=== PATIENT | female | born 1985 | race Caucasian/White ===

== ENCOUNTER 2020-10-17 11:57 | Emergency (ER) | payer BC, SELFPAY ==
--- NOTE | ~2020-10-17 | XR_ITS ---
EXAMINATION: XR chest 2V DATE: 10/17/2020 12:41 INDICATION: Cough. TECHNIQUE: Frontal and lateral views of the chest were obtained. COMPARISON: CT abdomen and pelvis 11/07/2014 FINDINGS: The chest demonstrates clear lungs without pneumonia, pleural effusion, or pneumothorax. Th e heart size is normal. IMPRESSION: 1. No acute cardiopulmonary disease. Reviewed, dictated and finalized at location A.
[2020-10-17 12:17] VITALS: BP 129/84; PULSE 116; RESP 20; TEMP 36.5; O2SAT 100
--- NOTE | 2020-10-17 16:03 | ED.GENADULT ---
HPI - General Adult General Chief complaint: Unspecified <Donna Velazquez MD - Last Filed: 10/19/20 06:54> Stated complaint: sob, recent covid <Donna Velazquez MD - Last Filed: 10/19/20 06:54> Time Seen by Provider: 10/17/20 15:49 <Donna Velazquez MD - Last Filed: 10/19/20 06:54> Source: patient <Donna Velazquez MD - Last Filed: 10/19/20 06:54> Mode of arrival: ambulatory <Donna Velazquez MD - Last Filed: 10/19/20 06:54> Limitations: no limitations <Donna Velazquez MD - Last Filed: 10/19/20 06:54> History of Present Illness HPI narrative: This is a 35 year old female who presents for evaluation of lower back pain. Patient states she was found to be COVID + 12 days ago. Her symptoms were fever, cough, headache and congestion. She states 2 days ago she was feeling like herself but then she developed lower back discomfort. She reports heavy feeling to her back/bilateral flank. She was unable to sleep last night because she could not get comfortable. She also reports she feels like she is breathing differently and she may not be getting a full breath. She states she has been told it may be a panic attack. She denies abdominal pain, fever, nausea or vomiting. She also denies urinary complaints. <Donna Velazquez MD - Last Filed: 10/19/20 06:54> Related Data Home medications: Home Medications Medication Instructions Recorded Confirmed No Home Medications 10/17/20 10/17/20 <Donna Velazquez MD - Last Filed: 10/19/20 06:54> Allergies/adverse reactions: Allergies Allergy/AdvReac Type Severity Reaction Status Date / Time codeine Allergy Unknown Other Verified 10/17/20 17:34 wheat Allergy Unknown IBS Verified 10/17/20 17:34 <Donna Velazquez MD - Last Filed: 10/19/20 06:54> Review of Systems Review of Systems: All systems reviewed & are unremarkable except as noted in HPI and below <Donna Velazquez MD - Last Filed: 10/19/20 06:54> PMFSH Past Medical History Medical History: Medical History (Updated 10/18/20 @ 00:00 by Background Daemon) Kidney stones <Donna Velazquez MD - Last Filed: 10/19/20 06:54> Surgical History Surgical History: Surgical History (Updated 10/17/20 @ 16:24 by Donna Velazquez MD) Hx of tonsillectomy <Donna Velazquez MD - Last Filed: 10/19/20 06:54> Family History Family History: Family History (Updated 01/13/14 @ 17:08 by DOCTOR UNKNOWN) Mother Family history of mental disorder Depression Father Hypertension Other Cerebrovascular accident Diabetes mellitus Family history of cardiovascular disease Family history of malignant neoplasm of breast <Donna Velazquez MD - Last Filed: 10/19/20 06:54> Social History Social History: Social History Smoking status: Never smoker Second hand tobacco smoke exposure: No Alcohol intake: current <Donna Velazquez MD - Last Filed: 10/19/20 06:54> Exam Narrative: GENERAL: Well-appearing, well-nourished, and in no acute distress. HEAD: Normocephalic, atraumatic EYES: PERRLA and EOMI, conjunctiva clear without discharge THROAT:Mucous membranes moist, Oropharynx normal without erythema, exudate, peritonsillar swelling or fluctuance NECK: Supple, without lymphadenopathy or mass RESPIRATORY: No respiratory distress, Airway patent, Respirations non-labored, Clear to auscultation without rales, rhonchi or wheeze HEART: Regular rate and rhythm. No murmur heard. Normal peripheral pulses. ABDOMEN: Soft, nontender, nondistended, normal active bowel sounds. No masses. No rebound or guarding, No organomegaly. EXTREMITIES: No edema, normal strength with full range of motion. SKIN: Warm, dry, normal color without rash NEURO: Alert and oriented x3. CN 2-12 grossly intact. No focal deficits. PSYCH: Normal mood and affect. <Donna Velazquez MD - Last Filed: 10/19/20 06:54> Course Reevaluation(s) Reevaluation #1
--- NOTE | 2020-10-17 16:25 | ECG_ITS ---
Measurements Intervals [place] Rate: 80 P: 6 MA: 148 QRS: 35 QRSD: 78 T: 11 QT: 357 QTc: 413 Interpretive Statements SINUS RHYTHM DELAYED PRECORDIAL R/S TRANSITION LOW QRS VOLTAGE IN PRECORDIAL LEADS BASELINE ARTIFACT- I, III, AVR, AVL BORDERLINE ECG Electronically Signed On 10-17-2020 17:23:34 CDT by Piter Smith D.O.
[2020-10-17] MEDS: SODIUM CHLORIDE 0.9% IV 1,000 ML 999 ML IV CONT (16:29)
[2020-10-17 16:30] LABS: Basophils Percent Auto 0.5 % (0.2-1.2); Eosinophils Absolute Auto 0.2 K/mm3 (0-0.3); Eosinophils Percent Auto 2.3 % (0-4.4); Hematocrit 41.7 % (37.0-47.0); Hemoglobin 13.9 g/dL (12.0-15.0); Immature Granulocyte Absolute 0.04 K/mm3 (0.00-0.031); Immature Granulocyte Percent A 0.5 % (0-0.5); Lymphocytes Absolute Auto 2.25 K/mm3 (0.9-3.2); Lymphocytes Percent Auto 26.4 % (18.3-44.2); Mean Corpuscular HGB Conc 33.3 g/dl (32-36); Mean Corpuscular Hemoglobin 29.6 pg (26-34); Mean Corpuscular Volume 88.9 fl (80-100); Mean Platelet Volume 9.6 fl (7.4-10.4); Monocytes Absolute Auto 0.5 K/mm3 (0.1-0.6); Neutrophils Absolute Auto 5.5 K/mm3 (1.3-6.7); Neutrophils Percent Auto 64.3 % (45.5-73.1); Platelet Count Result 294 k/mm3 (150-375); Red Blood Count 4.69 M/mm3 (4.2-5.4); Red Cell Distribution Width 12.7 % (11.5-14.5); White Blood Count 8.5 K/mm3 (4.5-10.0)
[2020-10-17 16:34] VITALS: BP 109/78; PULSE 88; RESP 18; TEMP 36.8; O2SAT 98
[2020-10-17 16:46] LABS: Alanine Aminotransferase 79 U/L (4-35); Albumin Level 4.5 g/dL (3.5-5.1); Alkaline Phosphatase 76 U/L (38-126); Anion Gap 7 mmol/L (8-16); Aspartate Amino Transferase 52 U/L (14-36); Bilirubin,Total 1.2 mg/dL (0.2-1.3); Blood Urea Nitrogen 8 mg/dL (7-17); Calcium 9.7 mg/dL (8.4-10.2); Carbon Dioxide 28 mmol/L (22-30); Chloride 99 mmol/L (98-107); Estimated CRCL calculation 128 ml/min; Estimated Glomerular Filt Rate > 60; Glucose 88 mg/dL (65-110); Potassium 3.9 mmol/L (3.4-5.0); Sodium 134 mmol/L (137-145)
[2020-10-17 16:57] LABS: Troponin I < 0.012 ng/mL (0.000-0.034)
[2020-10-17 17:02] LABS: INR 0.9; Prothrombin Time 11.7 Seconds (11.1-14.7)
[2020-10-17 17:03] LABS: Partial Thromboplastin Time 27.1 SECONDS (22.3-36.8)
[2020-10-17 17:05] LABS: D Dimer 0.33 ug/mL (<0.48)
[2020-10-17] MEDS: KETOROLAC 30 MG/ML VIAL (*BKC) IV PUSH (17:29)
[2020-10-17 17:30] VITALS: RESP 16
[2020-10-17 17:45] LABS: Add Urine Microscopic? NO; Appearance Urine Clear (Clear); Bilirubin Urine Negative (Negative); Blood Urine Negative (Negative); Color Urine Yellow (Yellow); Glucose Urine UA Negative (Negative); Ketones Urine Negative (Negative); Leukocyte Esterase Ur Negative LEU/UL (Negative); Nitrate Urine Negative (Negative); Protein Urine Negative (Negative); Urobilinogen Urine 0.2 mg/dL (<2.0)
[2020-10-17 17:46] LABS: Pregnancy On Board Control Positive; Urine Pregnancy Test Negative
[2020-10-17 18:22] VITALS: BP 114/64; PULSE 93; RESP 20; O2SAT 100
== END 2020-10-17 18:58 | disposition home or self-care (01) ==
PROVIDERS: Emergency Provider General Practice; PCP Nurse Practitioner Family
DX: U07.1 COVID-19 (principal); M54.5 Low back pain; R06.02 Shortness of breath
CPT/HCPCS: 36415; 71046; 80053; 81003; 81025; 84484; 85025; 85380; 85610; 85730; 93005; 96361; 96374; 99284; J1885; J7030

== ENCOUNTER 2022-02-26 15:43 | Emergency (ER) | payer BC, SELFPAY ==
[2022-02-26 16:01] VITALS: BP 130/89; PULSE 119; RESP 18; TEMP 36.5; O2SAT 100
--- NOTE | 2022-02-26 16:30 | ED.URI ---
HPI - URI/Sore Throat General Chief Complaint: Upper Respiratory Infection Stated Complaint: sorethroat,congestion Time Seen by Provider: 02/26/22 16:30 Source: patient Mode of arrival: ambulatory Limitations: no limitations History of Present Illness HPI Narrative: 36-year-old female presents with complaint of sore throat, fatigue, headache, chills starting last night. Sore throat getting progressively worse. Reports that her son had strep throat 2 weeks ago. All systems reviewed and negative except as noted above. Related Data Home Medications Medication Instructions Recorded Confirmed semaglutide (weight loss) 2.4 2.4 mg subcut WEEKLY 02/26/22 02/26/22 mg/0.75 mL subcutaneous pen injector (Wegovy) Allergies Allergy/AdvReac Type Severity Reaction Status Date / Time codeine AdvReac Intermediate Other Verified 02/26/22 16:20 wheat AdvReac Intermediate IBS Verified 02/26/22 16:20 Review of Systems Review of Systems: CONSTITUTIONAL: Denies fever. Reports chills, or sweats. EYES: Denies visual changes, redness, or discharge. ENT: Denies rhinorrhea, congestion . Reports sore throat. Denies otalgia. CARDIOVASCULAR: Denies chest pain, palpitations, or edema. RESPIRATORY: Denies cough or dyspnea. GASTROINTESTINAL: Denies abdominal pain, nausea, vomiting, or diarrhea. GENITOURINARY: Denies dysuria or hematuria. SKIN: Denies rash or itching. MUSCULOSKELETAL: Denies back pain, joint pain, or myalgia. NEUROLOGIC: Denies headache, numbness, or weakness. PSYCHIATRIC: Denies anxiety or depression. All other systems reviewed are negative, except as documented in HPI. [facility] Past Medical History Medical History (Updated 02/26/22 @ 16:37 by Mara Miranda NP) Kidney stones Surgical History Surgical History (Updated 10/17/20 @ 16:24 by Donna Velazquez MD) Hx of tonsillectomy Family History Family History (Updated 01/13/14 @ 17:08 by DOCTOR UNKNOWN) Mother Family history of mental disorder Depression Father Hypertension Other Cerebrovascular accident Diabetes mellitus Family history of cardiovascular disease Family history of malignant neoplasm of breast Social History Social History Smoking status: Never smoker Second hand tobacco smoke exposure: No Alcohol intake: current Comments At time of signature, agree with nursing past medical, surgical, social and family history. There is no relevant family history pertinent to the presenting complaint. Exam Narrative: GENERAL: This is a well-nourished, well-developed patient, in no apparent distress. HEAD: normocephalic, atraumatic. EYES: PERRL. Sclera clear/white. Vision is grossly intact. EARS: External ears normal NOSE: External nose normal THROAT: Mucous membranes moist, erythema to posterior pharynx with mild swelling. No exudates. No tonsillar swelling. NECK: Neck supple, non-tender without lymphadenopathy, masses or thyromegaly. CARDIOVASCULAR: Regular rate and rhythm without murmurs, gallops, or rubs. RESPIRATORY: Clear to auscultation. Breath sounds equal bilaterally. No wheezes, rales, or rhonchi. SKIN: warm, Dry, intact with no suspicious lesions or rash, good texture and turgor. NEURO: awake, alert, and oriented to person, place and time. There were no obvious focal neurologic abnormalities. EXTREMITIES: No joint tenderness, effusion, or edema noted. Course Course Level of Care: Express Care Visit Vital Signs Vital signs: Vital Signs Temperature 36.5 C 02/26/22 16:01 Pulse Rate 119 H 02/26/22 16:01 Respiratory Rate 18 02/26/22 16:01 Blood Pressure 130/89 02/26/22 16:01 Pulse Oximetry 100 02/26/22 16:01 Oxygen Delivery Room Air 02/26/22 16:01 Temperature 36.5 C 02/26/22 16:01 Pulse Rate 119 H 02/26/22 16:01 Respiratory Rate 18 02/26/22 16:01 Blood Pressure 130/89 02/26/22 16:01 Pulse Oximetry 100 02/26/22 16:01 Oxygen Delivery Room Air 02/26/22 16:0
== END 2022-02-26 16:42 | disposition home or self-care (01) ==
PROVIDERS: Emergency Provider Nurse Practitioner Family; PCP Nurse Practitioner Family
DX: J02.0 Streptococcal pharyngitis (principal); Z20.822 Contact with and (suspected) exposure to COVID-19
CPT/HCPCS: 87426; 99213; C9803; G0463

== ENCOUNTER 2023-02-28 13:31 | Emergency (ER) | payer BC, SELFPAY ==
--- NOTE | 2023-02-28 13:43 | ED.URI ---
HPI - URI/Sore Throat General Chief Complaint: Upper Respiratory Infection Stated Complaint: sorethroat,cough,congestion Time Seen by Provider: 02/28/23 13:45 Source: patient Mode of arrival: ambulatory Limitations: no limitations History of Present Illness HPI Narrative: Yoko is a 37-year-old female patient presenting to the clinic today with complaints cough, sore throat, and congestion x1-2 days. Denies any chest pain or shortness of breath. Works as a schoolteacher MD elicited complaint: sore throat and nasal congestion Related Data Home Medications Medication Instructions Recorded Confirmed No Home Medications 02/28/23 02/28/23 Allergies Allergy/AdvReac Type Severity Reaction Status Date / Time codeine AdvReac Intermediate Other Verified 02/28/23 13:52 wheat AdvReac Intermediate IBS Verified 02/28/23 13:52 Review of Systems Review of Systems: Pertinent positives per HPI. Patient denies any fever, chills, rash, headache, visual changes, dizziness, shortness of breath, chest pain, palpitations, nausea, vomiting, diarrhea, constipation, abdominal pain, or any urinary issues. PMFSH Past Medical History Medical History Kidney stones Surgical History Surgical History Hx of tonsillectomy Family History Family History Mother Family history of mental disorder Depression Father Hypertension Other Cerebrovascular accident Diabetes mellitus Family history of cardiovascular disease Family history of malignant neoplasm of breast Social History Social History Smoking status: Never smoker Second hand tobacco smoke exposure: No Alcohol intake: current Comments At the time of my signature, I reviewed and agree with the nursing past medical, surgical, social, and family history. There is no relevant family history pertinent to the patient complaint. Exam Narrative: General: Well-developed, well nourished, in no apparent distress Head: Normocephalic, atraumatic Eyes: Pupils equally round and reactive to light bilaterally, EOM intact, sclera and conjunctive clear, no discharge, lids normal Ears: TMs intact and clear, ear canals clear, no drainage, grossly hearing normal. Nose: Nares patent, clear nasal discharge, no inflammation, no sinus tenderness. Mouth: Oral pharynx red without lesions or masses, good dentition, MMM. Neck: Supple, trachea midline, no enlargement of anterior or posterior cervical nodes, no thyroid masses or goiter palpable. Cardio: Regular rate and rhythm, s1 and s2 normal, no murmur appreciated. Resp: Clear to auscultation bilaterally, no rhonchi, rales, wheezing or rubs Course Course Emergency Course: Portions of this record may have been created with voice recognition software. Level of Care: Express Care Visit Vital Signs Vital signs: Vital signs reviewed MDM - URI/Sore Throat MDM Narrative Medical decision making narrative: At the time of visit patient is resting comfortably on the exam table. Patient appears to be nontoxic. COVID, influenza, and strep test were performed. Strep and influenza were negative and COVID was positive. Supportive measures were discussed with the patient and they voiced understanding discharge instructions and agrees to treatment plan. Return precautions reviewed Differential Diagnosis Differential diagnosis: Likely upper respiratory infection, otitis media, sinusitis, viral infection, bronchitis, influenza, pharyngitis and other (COVID) Discharge Plan Discharge Clinical Impression: COVID-19 Patient Disposition: Home, Self-Care Condition: Stable Instructions: Antibiotic Form, COVID-19 (Coronavirus Disease 2019) (ED), How to Recover from COVID-19 at Home (ED) Additional Instru
[2023-02-28 13:44] VITALS: BP 118/78; PULSE 108; RESP 18; TEMP 36.4; O2SAT 99
== END 2023-02-28 14:07 | disposition home or self-care (01) ==
PROVIDERS: Emergency Provider Nurse Practitioner Family; PCP Nurse Practitioner Family
DX: U07.1 COVID-19 (principal)
CPT/HCPCS: 87081; 87426; 87804; 87880; 99213; C9803; G0463

== ENCOUNTER 2024-11-15 08:39 | Emergency (ER) | payer BC, SELFPAY ==
[2024-11-15 08:51] VITALS: BP 128/79; PULSE 94; RESP 18; TEMP 36.7; O2SAT 100
--- NOTE | 2024-11-15 09:10 | ED.URI ---
HPI - URI/Sore Throat General Chief Complaint: Upper Respiratory Infection Stated Complaint: Sore throat Time Seen by Provider: 11/15/24 09:08 Source: patient, RN notes reviewed and old records reviewed Mode of arrival: ambulatory Limitations: no limitations History of Present Illness HPI Narrative: 39 year old female who presents to express care with complaints of cough, nasal congestion and drainage, and sore throat with fatigue since yesterday which has progressively worsened. 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. Patient reports that she has been taking Tylenol for her symptoms, is on Eliquis for PE in August 2024. Patient reports no known fevers but has felt hot and cold. Patient reports no shortness of breath or any chest pain MD elicited complaint: cough and sore throat Pertinent past history: other (PE) Onset (ago): day(s) (since yesterday) Consistency: progressively worsening Severity: moderate Pain scale (0-10): 5 Description of mucous: other (thick clear) Able to tolerate fluids by mouth: Yes Treatments prior to arrival: acetaminophen Related Data Home Medications ?Medication ?Instructions ?Recorded ?Confirmed ?Last Taken ?Type apixaban 5 mg tablet (Eliquis) mg 11/15/24 Unknown History Allergies Allergy/AdvReac Type Severity Reaction Status Date / Time codeine AdvReac Intermediate Other Verified 11/15/24 08:53 wheat AdvReac Intermediate IBS Verified 11/15/24 08:53 Review of Systems Review of Systems: CONSTITUTIONAL: Denies malaise, positive chills, sweats, no fever. EYES: Denies visual changes, redness, or discharge. ENT: Reports rhinorrhea, congestion, sinus pain, no otalgia and positive for sore throat. CARDIOVASCULAR: Denies chest pain, palpitations, or edema. RESPIRATORY: Reports cough.? Denies dyspnea. GASTROINTESTINAL: Denies abdominal pain, nausea, vomiting, diarrhea SKIN: Denies rash or itching. MUSCULOSKELETAL: Denies myalgia, reports fatigue NEUROLOGIC: Denies headache. All systems reviewed & are unremarkable except as noted in HPI and below PMFSH Past Medical History Medical History (Updated 11/16/24 @ 07:54 by Bertha Hawkins NP) Pulmonary emboli Kidney stones Surgical History Surgical History (Updated 11/16/24 @ 07:57 by Bertha Hawkins NP) H/O umbilical hernia repair S/P left knee arthroscopy Hx of breast reduction, elective H/O section x4 H/O tubal ligation H/O lithotripsy Hx of tonsillectomy Family History Family History Mother Family history of mental disorder Depression Father Hypertension Other Cerebrovascular accident Diabetes mellitus Family history of cardiovascular disease Family history of malignant neoplasm of breast Social History Social History (Updated 11/16/24 @ 07:55 by Bertha Hawkins NP) Smoking status: Never smoker Second hand tobacco smoke exposure: No Alcohol intake: current Alcohol use details: social Substance use type: does not use Living arrangements: with family Additional occupation/education comments: [employer] Gender identity (if verbalized by the patient): Female Comments At time of signature, agree with nursing past medical, surgical, social and family history. There is no relevant family history pertinent to the presenting complaint Exam Narrative: GENERAL: Well-appearing, well-nourished, and in no acute distress. HEAD: Normocephalic EYES: PERRLA, conjunctivae clear ENT: Nares clear, turbinates edematous and erythematous, clear discharge. Mucous membranes moist. TM pearly nagy with dull light reflex bilaterally; no tragal tenderness. Oropharynx erythematous without lesions. Tonsils not present and throat without exudate, no drooling, no hoarseness, no trismus, uvula midline.post nasal discharge NECK: Supple. No lymphadenopathy CHEST: Clear to auscultation, breath sounds equal. No wheezing, rhonchi, rales, or stridor. No respiratory distress, speaks in full sentences.dry cough noted, SAO2 100% on room air HEART: Regular rate and rhythm. No murmur heard. SKIN: Warm, dry, no rash. NEURO: Alert and oriented x3. PSYCH: Normal mood and affect Course Course Emergency Course: Patient is aware of diagnosis, understands and agrees to treatment plan.? Anticipatory guidance given.? Patient agrees to follow-up as directed and is aware of reasons to seek care at the emergency department. Portions of this record may have been created with voice recognition software Level of Care: Express Care Visit Vital Signs Vital signs: Vital Signs Temperature 36.7 C 11/15/24 08:51 Pulse Rate 94 09/22/25 08:51 Respiratory Rate 18 11/15/24 08:51 Blood Pressure 128/79 11/15/24 08:51 Pulse Oximetry 100 11/15/24 08:51 Oxygen Delivery Room Air 11/15/24 08:51 Temperature 36.7 C 11/15/24 08:51 Pulse Rate 94 11/15/24 08:51 Respiratory Rate 18 11/15/24 08:51 Blood Pressure 128/79 11/15/24 08:51 Pulse Oximetry 100 11/15/24 08:51 Oxygen Delivery Room Air 11/15/24 08:51 Reviewed MDM - URI/Sore Throat MDM Narrative Medical decision making narrative: Differential diagnosis considered: Drummond virus, strep pharyngitis, allergic rhinitis, upper respiratory tract infection, sinusitis, rhinosinusitis, nasopharyngitis. viral pharyngitis, otitis media, otitis externa, pneumonia, bronchitis, viral cough syndrome, viral syndrome, and influenza.? Exam findings show no acute concerns or changes; patient is non-toxic appearing and is in no distress.? Patient is appropriate for outpatient treatment and follow-up. Differential Diagnosis Differential diagnosis: Likely upper respiratory infection, sinusitis, viral infection, influenza, pharyngitis and other (strep pharyngitis, COVID) Medical Records Attestation: I reviewed the patient's medical records. Lab Data Attestation: I reviewed the patient's lab results. Lab results narrative: COVID antigen negative, Influenza A&B negative, strep screen negative, strep culture sent Labs: Lab Results 11/15/24 Range/Units 09:20 POC Influenza A Ag Negative (Negative) POC Influenza B Ag Negative (Negative) POC SARS CoV-2 Ag Negative (Negative) POC Grp A Strep Screen Negative (Negative) reviewed Critical Care Time Critical Care Time Critical Care Time: No Discharge Plan Discharge Clinical Impression: URI, acute Patient Disposition: Home Condition: Stable Instructions: Upper Respiratory Infection (ED) Additional Instructions: Increase fluids especially juices and water [id number] cough and cold medicine of your choice for your symptoms Tylenol for any fever pain Zyrtec Claritin or Karrie daily may include plain Sudafed in a.m. and early p.m. heat to the face 20-30 minutes 4-6 times a day for pain Salt water gargles, throat lozenges or throat sprays as desired Your strep test today was negative. A throat culture will be sent to the laboratory for further testing. IF the test is positive, you will receive a phone call within 48 hours and an appropriate antibiotic will be initiated at that time. COVID and flu also negative If your symptoms persist, change or worsen significantly before you can contact your personal physician then please, without delay, go to the emergency department for further evaluation. Follow-up with PCP in 7-10 days or sooner if needed Follow up with PCP soon in regards to your blood pressure which is elevated above threshold for referral. Blood pressure above 120/80 may indicate pre-hypertension. 128/79 Patient Language: Bengali Prescriptions: No Action Eliquis 5 mg tablet Follow-up/Referrals: Agnes,Blas Shanks [Other] Time of Disposition: 09:33 Quality Harjit Coma Scale Eyes: Open Verbal: Oriented and Alert Motor: Follows Commands Harjit Coma Total Score: 15
--- OUTSIDE RECORDS SUMMARY | 2024-11-15 09:18 | XMS_ITS | Clinical Summary ---
Author Organization [facility] Address [address] [place] [address] Phone Care Team Providers Care Credit Administration Manager Name Role Phone Agnes Blas Marlee ESQUIVEL Primary Care Provider [phone] Austin Muñoz MD Unavailable [phone] Allergies Active Allergy Reactions Criticality Noted Date Comments Codeine Other (see Comments) Low 10/17/2020 Fentanyl Nausea 11/12/2018 Gluten Meal Other (see Comments) Low 10/21/2024 GI Wheat Other (see Comments) 10/17/2020 Medications apixaban (ELIQUIS) 5 MG Tablet Take 5 mg by mouth 2 times daily. 5 Active Loryna 3-0.02 MG Tablet Take 1 Tablet by mouth daily. 5 Active HYDROcodone-acet aminophen (NORCO) 5-325 MG Tablet 5 Active ondansetron (ZOFRAN-ODT) 4 MG TABLET DISPERSIBLE dissolve 1 tablet in mouth every 8 hours as needed for nausea 5 Active Active Problems No known active problems Encounters Date Type Department Care Team Description 10/21/2024 10:00 AM CDT Office Visit [facility] [id number] [place] [phone] Austin Muñoz MD Other pulmonary embolism without acute cor pulmonale, unspecified chronicity (HCC) (Primary Dx); Deep vein thrombosis (DVT) of non-extremity vein, unspecified chronicity 10/21/2024 Travel from Last 3 Months Family History Medical History Relation Name Comments Chronic Obstructive Pulmonary Disease Father Hypertension Father Relation Name Status Comments Father Alive Mother Alive Social History Tobacco Use Types Packs/Day Years Used Date Smoking Tobacco: Never Smokeless Tobacco: Never Tobacco Cessation:Counseling Given: Not Answered Alcohol Use Standard Drinks/Week Comments Yes 0 (1 standard drink = 0.6 oz pur e alcohol) 4x a year Comments No Sex and Gender Information Value Date Recorded Sex Assigned at Not on file Legal Sex Female 3:39 PM CDT Gender Identity Not on file Sexual Orientation Not on file Last Filed Vital Signs Vital Sign Reading Time Taken Comments Blood Pressure 122/80 10/21/2024 10:33 AM CDT Pulse 82 10/21/2024 10:33 AM CDT Temperature 36.5 C (97.7 F) 10/21/2024 10:33 AM CDT Respiratory Rate 20 10/21/2024 10:33 AM CDT Oxygen Saturation 97% 10/21/2024 10:33 AM CDT Inhaled Oxygen Concentration - - Weight 85.5 kg (188 lb 6.4 oz) 10/21/2024 10:33 AM CDT Height 165.1 cm (5' 5) 10/21/2024 10:33 AM CDT Body Mass Index 31.35 10/21/2024 10:33 AM CDT Plan of Treatment Upcoming Encounters Date Type Department Care Team (Late st Contact Info) Description 12/16/2024 1:15 PM CDT Office Visit [facility] [id number] [phone] Austin Muñoz MD [address] [place] [phone] Health Maintenance Due Date Last Done Comments Hepatitis C Virus (HCV) Screening 1983 Hepatitis B Immunization (1 of 3 - 19+ 3-dose series) 2002 Pap Smear 2004 Human Papillomavirus (HPV) Immunization (1 - 3-dose SCDM series) 2010 Cervical Cancer Screening (CCS) 2013 HPV/Cotest 2013 Mammogram 05/07/2023 05/06/2022, 04/24, 07/21/2020 Influenza Immunization (#1) 2024 11/24/2020, 1 03/09/2018 SARS-COV-2 Immunization ( season) 2024 11/24/2020, 05/01/2020, 04/13/2020, Additional history exists Respiratory Syncytial Virus (RSV) Immunization (Adult) (1 - 1-dose 75+ series) 2058 TdaP Immunization Completed 10/04/2014, 09/08/2013 Discussion re Starting/Frequency of Mammograms Completed 05/06/2022, 05/03/2021, 07/21/2020 Meningococcal Immunization (ACWY) Aged Out No longer eligible based on patient's age to complete this topic Pneumococcal Immunization Combined Aged Out No longer eligible based on patient's age to complete this topic Rotavirus Immunization Aged Out No lo nger eligible based on patient's age to complete this topic Insurance [facility] Care Teams Credit Administration Manager Relationship Specialty Start Date End Date Blas Alarcon DO [address] [place] [id number] PCP - General Family Medicine 09/23/24 Austin Muñoz MD [address] [place] [phone] Consulting Physician Oncology 09/23/24
[2024-11-15 09:22] LABS: EDCOVIDSCREEN Negative (Negative); EDINFLUASCREEN Negative (Negative); EDINFLUBSCREEN Negative (Negative); EDSTREPNEGPOS1 Negative (Negative)
== END 2024-11-15 09:36 | disposition home or self-care (01) ==
PROVIDERS: Emergency Provider Registered Nurse
DX: J06.9 Acute upper respiratory infection, unspecified (principal); Z20.822 Contact with and (suspected) exposure to COVID-19; Z86.711 Personal history of pulmonary embolism; Z79.01 Long term (current) use of anticoagulants
CPT/HCPCS: 87081; 87426; 87804; 87880; 99213; G0463